=== PATIENT | female | born 1975 | race Caucasian/White ===

== ENCOUNTER 2023-08-20 16:00 | Emergency (ER) | payer OTHER, SELFPAY ==
--- NOTE | ~2023-08-20 | XR_ITS ---
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 No acute fracture or traumatic malalignment. No significant joint effusion. No foreign bodies. Impression: 1: No acute fracture. Reviewed, dictated and finalized at location A. RVISOR GRINDING Impression: 1: No acute fracture.
--- NOTE | ~2023-08-20 | XR_ITS ---
XR knee LT min 4V 08/20/2023 17:21 Indication: Left knee pain after fall Procedure: 5 views left knee Comparison: No prior studies for comparison. Findings: There is moderate tricompartment osteoarthritis of the left knee. No fracture or traumatic malalignment. No joint effusion. No foreign bodies. Impression: 1: No acute fracture. Reviewed, dictated and finalized at location A. INE FASTENER Impression: 1: No acute fracture.
[2023-08-20 16:14] VITALS: BP 106/75; PULSE 81; RESP 20; TEMP 36.4; O2SAT 99
--- NOTE | 2023-08-20 16:23 | ED.GENADULT ---
HPI - General Adult General Chief complaint: Extremity Injury, Upper Stated complaint: Right Elbow Injury Source: patient, RN notes reviewed and old records reviewed Mode of arrival: ambulatory Limitations: no limitations History of Present Illness HPI narrative: 48 year old female presents to [facility] with complaint of falling on Sunday. Patient states slipped and fell onto concrete. Patient complaining right elbow pain, and left knee pain and bruising. Patient denies hitting head, LOC, neck or back pain. Related Data Home Medications Medication Instructions Recorded Confirmed amitriptyline 10 mg tablet 10 mg PO DAILY 08/20/23 08/20/23 amlodipine 2.5 mg tablet 2.5 mg PO DAILY 08/20/23 08/20/23 certolizumab pegol 400 mg/2 mL 400 mg subcut MONTHLY 08/20/23 08/20/23 (200 mg/mL x2) subcutaneous syringe kit (Cimzia) leflunomide 20 mg tablet 20 mg PO DAILY 08/20/23 08/20/23 morphine 15 mg tablet,extended 15 mg PO QHS 08/20/23 08/20/23 release tizanidine 2 mg tablet 2 mg PO QID PRN Muscle Spasm 08/20/23 08/20/23 Allergies Allergy/AdvReac Type Severity Reaction Status Date / Time meloxicam Allergy Intermediate Rash Verified 08/20/23 16:51 Review of Systems Constitutional: Constitutional: Reports no additional constitutional complaints, Denies body ache(s), Denies chills, Denies fatigue, Denies fever(s) and Denies headache(s) Eyes: Eyes: Reports no additional eye complaints and Denies blurry vision ENT: Reports system reviewed and no additional complaints, except as documented, Denies vertigo, Denies dizziness, Denies ear discharge, Denies otalgia, Denies facial pain, Denies headache(s), Denies nasal congestion, Denies nasal discharge, Denies sinus pain, Denies sinus pressure and Denies sore throat Cardiovascular: Cardiovascular: Reports no additional cardiovascular complaints, Denies chest pain, Denies chest pain at rest, Denies rapid heart rate and Denies dyspnea Respiratory: Respiratory: Reports no additional respiratory complaints, Denies chest congestion, Denies cough, Denies pain on inspiration, Denies pain with cough and Denies dyspnea Gastrointestinal: Gastrointestinal: Denies abdominal pain, Denies diarrhea, Denies nausea and Denies vomiting Musculoskeletal: Comments: Left knee pain bruising, right elbow pain and bruising Integumentary/Breasts: Skin/Breast: Denies rash Neurologic: Reports system reviewed and no additional complaints, except as documented, Denies vertigo, Denies dizziness and Denies headache(s) Endocrine: Endocrine: Denies fatigue PMFSH Comments At the time of my signature, I reviewed and agree with the nursing past medical, surgical, social, and family history. There is no relevant family history pertinent to the patient complaint. Exam Const: General: cooperative, healthy appearing, no acute distress and well nourished Nutritional Appearance: well nourished Orientation/consciousness: patient oriented x3 Limitations: no limitations HENMT: Head: normal to inspection and normocephalic Ears: external ears normal, TM's normal bilaterally, mastoids normal and Abnormal EAC present Face/Nose/Sinus: normal facial exam Face and sinus: normal facial exam Mouth: Yes Normal oral and palatal mucosa present, Yes oropharynx normal and Yes moist mucous membranes Throat: tonsils normal, uvula midline and no uvular edema Eyes: General: appearance normal, both eyes and all related structures Sclera: sclerae normal Pupils: Equal, round and reactive pupils present Resp: Effort & Inspection: normal respiratory effort, able to speak in complete sentences, no audible wheezes, no cough, no respiratory distress and no retractions Back/Spine/Pelvis: Cervical Spine: normal cervical lordosis Skin: General skin exam: normal color and no rashes or lesions noted Neuro: General: patient oriented x3 Cranial nerves: Yes Equal, round and reactive pupils present Extrem: Right upper extremity: no
== END 2023-08-20 17:45 | disposition home or self-care (01) ==
PROVIDERS: Emergency Provider Registered Nurse; PCP Internal Medicine Geriatric Medicine
DX: S80.02XA Contusion of left knee, initial encounter (principal); S50.01XA Contusion of right elbow, initial encounter; Z79.899 Other long term (current) drug therapy; W01.0XXA Fall on same level from slipping, tripping and stumbling without subsequent striking against object, initial encounter
CPT/HCPCS: 73080; 73564; 99214; G0463